=== PATIENT | female | born 1970 | race Caucasian/White ===

== ENCOUNTER 2016-06-16 08:24 | Outpatient (CLI) | payer OTHER ==
[~2016-06-16 08:24] MED LIST: ALBUTEROL HFA60 DOSE IN; HYCET1 ML PO
--- NOTE | 2016-06-16 12:54 | DIAGNOSTIC IMAGING REPORT ---
PROCEDURE: CT ABDOMEN/PELVIS W/O CONTRAST INDICATION: LT FLANK PAIN TECHNIQUE: Axial CT images were obtained through the abdomen and pelvis without IV contrast. Coronal and sagittal reformations were created. COMPARISON: None. FINDINGS: Clear lung bases. Normal sized heart. No hiatal hernia. Moderate patchy hypodensity throughout the liver. Surgically absent gallbladder. The unenhanced appearance of the adrenal glands, kidneys, pancreas and spleen is normal. The abdominal aorta is normal in its course and caliber without atherosclerosis. There are no suspicious calcifications, retroperitoneal adenopathy or masses. The stomach, upper small bowel loops, and mesentery are normal. Tiny fat containing periumbilical hernia. No free fluid or inflammation. There is diverticulosis throughout the transverse colon, descending colon and proximal sigmoid. No acute diverticulitis. There are two dominant follicles associated with the left ovary and one on the right ovary. The unenhanced appearance of the uterus, ovaries, urinary bladder, pelvic vessels, and pelvic small bowel loops is normal. Normal appendix. No suspicious calcifications, free pelvic fluid or mass. Intact osseous structures. Small bone island left ilium. Mild degenerative irregularity in the pubic symphysis. IMPRESSION: 1. No evidence of urinary calcification or obstructive uropathy. 2. Hepatic steatosis. 3. Diverticulosis without acute diverticulitis. 4. Status post cholecystectomy. All CT scans at this facility use dose modulation, iterative reconstruction, and/or weight-based dosing when appropriate to reduce radiation dose to as low as reasonably achievable.
== END 2016-06-16 23:00 ==
LOC: CT SRH 08:24
DX: K76.0 Fatty (change of) liver, not elsewhere classified (principal); K57.90 Diverticulosis of intestine, part unspecified, without perforation or abscess without bleeding